=== PATIENT | male | born 1995 | race Caucasian/White ===

== ENCOUNTER 2020-07-15 10:15 | Emergency (ER) | payer OTHER ==
[~2020-07-15] VITALS: Ht 188 cm; Wt 68.0 kg
[2020-07-15 10:22] VITALS: BP_SYST 140
[2020-07-15] MEDS ORDERED: IBUPROFEN 600 MG TABLET PO ONE (11:15)
[2020-07-15] MEDS ORDERED: IBUP-1969 PO (11:19)
[2020-07-15 12:01] VITALS: BP_SYST 137
== END 2020-07-15 12:03 | disposition home or self-care (01) ==
LOC: SED 10:15
DX: M94.0 Chondrocostal junction syndrome [Tietze] (principal)
CPT/HCPCS: 71045; 93005; 99283